=== PATIENT | female | born 1990 | race American Indian/Alaskan Native ===

== ENCOUNTER 2017-03-21 19:41 | Emergency (ER) | payer OTHER ==
[2017-03-21 21:38] LABS: Basophils % (Auto) 0.3 % (0.0-1.8); Eosinophils # (Auto) 0.2 K/mm3 (0.0-0.4); Eosinophils % (Auto) 1.8 % (0.0-4.3); Hemoglobin 11.5 gm/dl (10.1-14.3); Lymphocytes # (Auto) 1.9 K/mm3 (1.2-5.4); Lymphocytes % (Auto) 23.3 % (13.4-35.0); Mean Corpuscular HGB Conc 33 % (30-34); Mean Corpuscular Hemoglobin 28 pg (28-32); Mean Corpuscular Volume 84 fl (79-97); Monocytes # (Auto) 0.5 K/mm3 (0.0-0.8); Monocytes % (Auto) 5.7 % (0.0-7.3); Platelet Count 178 K/mm3 (140-440); Red Blood Count 4.16 M/mm3 (3.65-5.03)
[2017-03-21 21:51] LABS: Alanine Aminotransferase 72 units/L (7-56); Albumin 3.5 g/dL (3.9-5); BUN/Creatinine Ratio 15; Blood Urea Nitrogen 9 mg/dL (7-17); Calcium 8.9 mg/dL (8.4-10.2); Hemolysis Index 8
--- NOTE | 2017-03-21 23:32 | Ultrasound Report ---
FINAL REPORT PROCEDURE: US OB > = 14 WEEKS FETUS TECHNIQUE: Real-time limited sonographic examination was performed for evaluation of size, position, heartbeat, fluid volume for each fetus with image documentation (1 or more fetuses). CPT 11482 HISTORY: abd pain COMPARISON: No prior studies are available for comparison. FINDINGS: There is a single living intrauterine gestation currently visualized in the breech presentation with heart rate of 152 beats per minute. Subjectively the amount of amniotic fluid appears normal. Placenta is located posterior and is grade 0. No evidence of placenta abruption. Venous Polanco incidentally noted anterior aspect of the placenta. Cervix length 4.7 centimeters. The edge of the placenta is low lying. Detailed exam of the anatomy was not performed. No gross abnormality is visualized. The maternal ovaries were not visualized. MEASUREMENTS BPD: 3.6 centimeter equals 17 weeks 0 days. HC: 13.1 centimeter equals 16 week 5 days. AC: 10.4 centimeter equals 16 week 2 days. FL: 1.9 centimeter equals 15 week 4 days. Mean Gestational Age (composite criteria): 16 week 3 days. Estimated Weight: 143 grams +/-20 1 grams equals 0 pounds 5 ounces +/-1 ounce.. Estimated date confinement 09/02/2017 +/-1.5 weeks.. IMPRESSION: There is a single living intrauterine gestation currently in the breech presentation. Average sonographic age by today's study 16 week 3 days placing the EDC at 09/02/2017 +/-1.5 weeks. Fetus currently too small to assess anatomy. No gross abnormality is seen. Consider follow-up anatomic screen at 18 weeks. The edge of the placenta is low lying. Recommend follow-up exam to ensure the edge of the placenta migrates from the internal cervical os and there is no evidence for placenta previa.
[2017-03-22 03:04] VITALS: BP 104/61
== END 2017-03-22 04:50 | disposition left against medical advice (07) ==
LOC: ED 19:41
DX: R10.9 Unspecified abdominal pain (principal); Z53.21 Procedure and treatment not carried out due to patient leaving prior to being seen by health care provider
CPT/HCPCS: 36415; 76805; 80053; 84703; 85025; 86850; 86900; 86901